=== PATIENT | female | born 1990 | race Caucasian/White ===

== ENCOUNTER 2018-06-19 17:45 | Emergency (ER) | payer OTHER ==
[~2018-06-19] VITALS: Ht 162.6 cm; Wt 58.6 kg
[2018-06-19] MEDS ORDERED: IOHEXOL 300 MG/ML 75 ML VIAL. IV ONE (18:45)
[2018-06-19 19:11] LABS: BASO # 0.1 x10^3/uL (0.0-0.2); BASO % 1 % (0-3); EOS # 0.1 x10^3/uL (0.0-0.7); EOS % 1 % (0-3); HEMATOCRIT 37.3 % (36.0-47.0); HEMOGLOBIN 12.5 g/dL (12.0-15.5); LYMPH # 2.9 x10^3/uL (1.0-4.8); LYMPH % 44 % (24-48); MEAN CORPUSCULAR HEMOGLOBIN 31 pg (25-35); MEAN CORPUSCULAR HGB CONC 34 g/dL (31-37); MEAN CORPUSCULAR VOLUME 92 fL (79-100); MONO # 0.5 x10^3/uL (0.0-1.1); MONO % 7 % (0-9); NEUT # 3.2 x10^3uL (1.8-7.7); NEUT % 48 % (31-73); PLATELET COUNT 273 x10^3/uL (140-400); RED BLOOD COUNT 4.05 x10^6/uL (3.50-5.40); RED CELL DISTRIBUTION WIDTH 13.5 % (11.5-14.5); WHITE BLOOD COUNT 6.6 x10^3/uL (4.0-11.0)
[2018-06-19 19:19] LABS: CREATININE 0.7 mg/dL (0.6-1.0); GFR 99.6; POTASSIUM 3.5 mmol/L (3.5-5.1)
[2018-06-19 19:21] LABS: PREG TEST PT QUAL NEGATIVE (NEG)
[2018-06-19 19:44] VITALS: BP 142/94
--- NOTE | 2018-06-19 20:11 | RAD ---
Examination: CT CHEST ABD PELVIS W/CONTRAST History: Omni 300 75cc: Trauma from fall snowboarding 11 days ago, left side pain. Had rib xrays earlier today, not read yet. Comparison/Correlation: None Findings: Axial images of chest, abdomen, and pelvis were obtained following IV contrast. Sagittal and coronal reformatted images were provided. Excellent opacification of the thoracic aorta and pulmonary arterial vasculature is identified. Pulmonary arterial vasculature is unremarkable. Thoracic aorta is normal. No pulmonary nodules or infiltrates. No pneumothorax. No enlarged thoracic lymph nodes. Bony structures of the thorax are normal. Left lateral chest wall musculature is grossly unremarkable. Liver, spleen, pancreas, adrenal glands, and kidneys are normal. Moderate quantity of stool in the colon is noted. There is no ascites. Trace pelvic free fluid is present. Bilateral adnexal follicles are present in appearance. Appendix is normal. Uterus is grossly unremarkable. Adnexal follicles are suggested bilaterally but physiologic in appearance. Bony structures of the spine and visualized pelvis are unremarkable. Impression: No evidence of fracture. No infiltrates or pneumothorax. No evidence of abdominal organ laceration. Electronically signed by: Dio Ron MD (06/19/2018 8:07 PM) [facility]
--- NOTE | 2018-06-19 20:17 | PHYS DOC ---
Adult General Chief Complaint Chief Complaint Rib pain [facility] HPI 28 years old female who fell snowboarding 11 days ago presented they are with left chest pain getting worse since the fall. No hemoptysis. Also complaining of left upper quadrant abdominal pain Review of Systems Review of Systems Constitutional: Denies fever or chills [] Eyes: Denies change in visual acuity, redness, or eye pain [] HENT: Denies nasal congestion or sore throat [] Respiratory: Denies cough or shortness of breath [] Cardiovascular: No additional information not addressed in HPI [] GI: Denies abdominal pain, nausea, vomiting, bloody stools or diarrhea [] : Denies dysuria or hematuria [] Musculoskeletal: Denies back pain or joint pain [] Integument: Denies rash or skin lesions [] Neurologic: Denies headache, focal weakness or sensory changes [] Endocrine: Denies polyuria or polydipsia [] All other systems were reviewed and found to be within normal limits, except as documented in this note. Current Medications Current Medications Current Medications Medications (Trade) Dose Ordered Sig/Nasra Start Time Stop Time Status Last Admin Dose Admin Iohexol (Omnipaque 300 Mg/ml) 75 ml 1X ONCE 06/19/18 18:45 06/19/18 18:46 DC 06/19/18 19:22 75 ML Allergies Allergies Allergies Coded Allergies Type Severity Reaction Last Updated Verified Sulfa (Sulfonamide Antibiotics) Allergy Unknown hives 06/19/18 Yes Physical Exam Physical Exam Constitutional: Well developed, well nourished, no acute distress, non-toxic appearance. [] HENT: Normocephalic, atraumatic, bilateral external ears normal, oropharynx moist, no oral exudates, nose normal. [] Eyes: PERRLA, EOMI, conjunctiva normal, no discharge. [] Neck: Normal range of motion, no tenderness, supple, no stridor. [] Cardiovascular:Heart rate regular rhythm, no murmur [] Lungs & Thorax: Bilateral breath sounds clear to auscultation [] Abdomen: Bowel sounds normal, soft, no tenderness, no masses, no pulsatile masses. [] Skin: Warm, dry, no erythema, no rash. [] Back: No tenderness, no CVA tenderness. [] Extremities: No tenderness, no cyanosis, no clubbing, ROM intact, no edema. [] Neurologic: Alert and oriented X 3, normal motor function, normal sensory function, no focal deficits noted. [] Psychologic: Affect normal, judgement normal, mood normal. [] Current Patient Data Vital Signs Vital Signs Date Time Temp Pulse Resp B/P (MAP) Pulse Ox O2 Delivery O2 Flow Rate FiO2 06/19/18 19:44 76 18 142/94 (110) 99 Room Air 06/19/18 17:45 98.5 Lab Results Laboratory Tests Test 06/19/18 18:34 White Blood Count 6.6 x10^3/uL (4.0-11.0) Red Blood Count 4.05 x10^6/uL (3.50-5.40) Hemoglobin 12.5 g/dL (12.0-15.5) Hematocrit 37.3 % (36.0-47.0) Mean Corpuscular Volume 92 fL (79-100) Mean Corpuscular Hemoglobin 31 pg (25-35) Mean Corpuscular Hemoglobin Concent 34 g/dL (31-37) Red Cell Distribution Width 13.5 % (11.5-14.5) Platelet Count 273 x10^3/uL (140-400) Neutrophils (%) (Auto) 48 % (31-73) Lymphocytes (%) (Auto) 44 % (24-48) Monocytes (%) (Auto) 7 % (0-9) Eosinophils (%) (Auto) 1 % (0-3) Basophils (%) (Auto) 1 % (0-3) Neutrophils # (Auto) 3.2 x10^3uL (1.8-7.7) Lymphocytes # (Auto) 2.9 x10^3/uL (1.0-4.8) Monocytes # (Auto) 0.5 x10^3/uL (0.0-1.1) Eosinophils # (Auto) 0.1 x10^3/uL (0.0-0.7) Basophils # (Auto) 0.1 x10^3/uL (0.0-0.2) Sodium Level 141 mmol/L (136-145) Potassium Level 3.5 mmol/L (3.5-5.1) Chloride Level 103 mmol/L (98-107) Carbon Dioxide Level 28 mmol/L (21-32) Anion Gap 10 (6-14) Blood Urea Nitrogen 12 mg/dL (7-20) Creatinine 0.7 mg/dL (0.6-1.0) Estimated GFR (Cockcroft-Gault) 99.6 Glucose Level 89 mg/dL (70-99) Calcium Level 9.0 mg/dL (8.5-10.1) Serum Test, Qualitative Negative (NEG) EKG EKG [] Radiology/Procedures Radiology/Procedures [] Course & Med Decision Making Course & Med Decision Making Pertinent Labs and Imaging studies reviewed. (See chart for details) [] Final Impression Final Impression [] Problems: (1) Rib contusion Qualifiers: Qualified Codes: S20.212A - Contusion of left front wall of thorax, initial encounter (2) Contusion of rib on left side Qualifiers: Qualified Codes: S20.212A - Contusion of left front wall of thorax, initial encounter Dragon Disclaimer Dragon Disclaimer This electronic medical record was generated, in whole or in part, using a voice recognition dictation system. ALEKSEY MONSALVE MD Jun 19, 2018 20:17
== END 2018-06-19 20:19 | disposition home or self-care (01) ==
LOC: ER 17:45
DX: S20.212A Contusion of left front wall of thorax, initial encounter (principal); R10.12 Left upper quadrant pain; Z88.2 Allergy status to sulfonamides; V00.311A Fall from snowboard, initial encounter; Y93.23 Activity, snow (alpine) (downhill) skiing, snowboarding, sledding, tobogganing and snow tubing; Y92.89 Other specified places as the place of occurrence of the external cause; Y99.8 Other external cause status
CPT/HCPCS: 36415; 71260; 74177; 80048; 84703; 85025; 99284; Q9967

== ENCOUNTER → 2018-06-19 | Outpatient (CLI) | payer OTHER ==
--- NOTE | 2018-06-20 10:34 | RAD ---
PA view of the chest and 3 views of the left ribs for left rib pain under the left breast from snowboarding accident 11 days ago, no improvement. FINDINGS: Lungs are clear. Cardiomediastinum is grossly unremarkable. No radiographically discernible left rib fractures are identified. No pneumothorax. There is a very subtle nondisplaced fracture of the anterior tip of the left eighth and ninth ribs seen only on the oblique view. No other osseous normality. IMPRESSION: 1. Subtle nondisplaced fractures of the anterior tips of both the eighth and ninth ribs on the left. Electronically signed by: Humberto Corrales MD (06/20/2018 10:30 AM) [id number]
== END | disposition home or self-care (01) ==
LOC: RAD 17:05
PROVIDERS: ATTEND Physician Assistant
DX: S22.42XD Multiple fractures of ribs, left side, subsequent encounter for fracture with routine healing (principal); X58.XXXD Exposure to other specified factors, subsequent encounter
CPT/HCPCS: 71101